=== PATIENT | male | born 1965 | race Two or more races ===

== ENCOUNTER 2017-02-10 10:35 | Emergency (ER) | payer BC ==
[~2017-02-10] VITALS: Ht 177.8 cm; Wt 85.9 kg
[~2017-02-10 10:35] MED LIST: ALEVE220 MG PO; Feosol PO; Folvite PO; MULTIVITAMIN1 EAC2 PO; NOHOMEMEDS; OXYCODONE HCL5 MG PO; Protonix PO; Thiamine,Vitamin B1 PO; [UNRECOGNIZED DRUG - REMARK]
[2017-02-10 11:15] LABS: ADD MIUA? YES; BILIRUBIN NEGATIVE; BLOOD NEGATIVE; COLOR YELLOW ((YELLOW)); GLUCOSE (STRIP) NEGATIVE; KETONES NEGATIVE; LEUKOCYTES NEGATIVE; NITRITE NEGATIVE; PROTEIN (STRIP) 100; SPECIFIC GRAVITY 1.016 (1.000-1.030); UROBILINOGEN 0.2 MG/DL (0.2-1.0)
[2017-02-10 11:15] LABS: HEMATOCRIT 43.9 % (38.0-50.0); MCH 29.7 PG (29.0-34.0); MEAN PLAT.VOLUME 12.1 uM^3 (9.0-12.4); PLATELET COUNT 73 K/uL (156-360); RBC DIS.WIDTH-CV 14.3 % (11.8-14.6); RBC DIS.WIDTH-SD 47.4 % (39-53); RED BLOOD COUNT 4.88 M/uL (4.00-5.50); WHITE BLOOD COUNT 5.2 K/uL (4.1-10.2)
[2017-02-10 11:17] LABS: BACTERIA RARE /HPF; EPITHELIAL CELLS RARE /HPF; MUCUS NONE SEEN /LPF; RED BLOOD CELLS 0-5 /HPF (0-5); WHITE BLOOD CELLS 0-5 /HPF (0-5)
[2017-02-10 11:22] LABS: CHLORIDE 107 mEq/L (99-109); POTASSIUM 4.3 mEq/L (3.7-5.4); SODIUM 139 mEq/L (136-147)
[2017-02-10 11:25] LABS: GLUCOSE 159 mg/dL (70-99)
[2017-02-10 11:26] LABS: ANION GAP 5 MEQ/L (2-14); TOTAL BILIRUBIN 0.5 mg/dL (0.0-1.0)
[2017-02-10 11:28] LABS: ALKALINE PHOSPHATASE 67 IU/L (3-129); GFR ESTIMATE (CALCULATED) > 59 mL/min/
[2017-02-10 11:29] LABS: UREA NITROGEN (BUN) 12 mg/dL (9-23)
[2017-02-10 11:32] LABS: LIPASE 40 U/L (1.0-51.0)
[2017-02-10 12:29] VITALS: BP 139/83
== END 2017-02-10 12:29 | disposition home or self-care (01) ==
LOC: EME 10:35
PROVIDERS: Physician Assistant
DX: E86.0 Dehydration (principal); F17.200 Nicotine dependence, unspecified, uncomplicated
CPT/HCPCS: 74022; 80053; 81003; 83690; 85027; 99281; 99284; J7030

== ENCOUNTER 2018-02-23 19:36 | Inpatient (IN) | payer OTHER ==
[~2018-02-23] VITALS: Ht 177.8 cm; Wt 78.3 kg
[2018-02-23 20:14] LABS: CHLORIDE 101 mEq/L (99-109); POTASSIUM 3.7 mEq/L (3.7-5.4); SODIUM 139 mEq/L (136-147)
[2018-02-23 20:16] LABS: GLUCOSE 131 mg/dL (70-99)
[2018-02-23 20:19] LABS: HEMOGLOBIN 16.2 G/DL (12.5-16.6); MCH 32.5 PG (29.0-34.0); MCHC 35.2 G/DL (30.0-36.0); MCV 92.4 FL (86-99); RBC DIS.WIDTH-CV 13.1 % (11.8-14.6); RBC DIS.WIDTH-SD 44.1 % (39-53); RED BLOOD COUNT 4.98 M/uL (4.00-5.50)
[2018-02-23 20:20] LABS: GFR ESTIMATE (CALCULATED) > 59 mL/min/ (58.99-99999)
[2018-02-23 20:21] LABS: UREA NITROGEN (BUN) 9 mg/dL (9-23)
[2018-02-23 20:28] LABS: TROP-I INTERPRETATION NEGATIVE; TROPONIN-I < 0.01 ng/mL (0.0-0.30)
[2018-02-23 21:19] LABS: IMM.PLATELET FRACTION 22.7 (1-7); PLAT.SUFFICIENCY VERY DECREASED; PLATELET COUNT 45 K/uL (156-360)
[2018-02-23 21:42] LABS: APPEARANCE CLEAR ((CLEAR)); BILIRUBIN NEGATIVE; BLOOD MODERATE; COLOR STRAW ((YELLOW)); GLUCOSE (STRIP) NEGATIVE; KETONES NEGATIVE; LEUKOCYTES NEGATIVE; NITRITE NEGATIVE; PROTEIN (STRIP) 30; SPECIFIC GRAVITY 1.005 (1.000-1.030)
[2018-02-23 21:48] LABS: BACTERIA NONE SEEN /HPF; EPITHELIAL CELLS RARE /HPF; MUCUS NONE SEEN /LPF; RED BLOOD CELLS 20-30 /HPF (0-5); UCUL ADDED? NO; WHITE BLOOD CELLS 0-5 /HPF (0-5)
[2018-02-24 01:47] LABS: ALBUMIN 4.4 g/dL (3.2-4.8)
[2018-02-24 01:50] LABS: TOTAL PROTEIN 8.2 g/dL (6.4-8.3)
[2018-02-24 01:52] LABS: TOTAL BILIRUBIN 3.9 mg/dL (0.0-1.0)
[2018-02-24 01:53] LABS: ALKALINE PHOSPHATASE 89 IU/L (3-129); SERUM ETHYL ALCOHOL < 10 mg/dL
[2018-02-24 01:55] LABS: AST (GOT) 101 IU/L (2-34); DIRECT BILIRUBIN 1.9 mg/dL (0.0-0.3)
[2018-02-24 01:56] LABS: ALT (GPT) 43 IU/L (3-49)
[2018-02-24 01:57] LABS: CHLORIDE 105 mEq/L (99-109); POTASSIUM 3.6 mEq/L (3.7-5.4); SODIUM 136 mEq/L (136-147)
[2018-02-24 01:59] LABS: GLUCOSE 114 mg/dL (70-99)
[2018-02-24 02:02] LABS: CREATININE 0.8 mg/dL (0.6-1.3); GFR ESTIMATE (CALCULATED) > 59 mL/min/ (58.99-99999)
[2018-02-24 02:03] LABS: UREA NITROGEN (BUN) 8 mg/dL (9-23)
[2018-02-24 04:00] VITALS: BP 154/80
[2018-02-24 06:41] LABS: LIPASE 37 U/L (1.0-51.0)
[2018-02-24 07:54] VITALS: BP 128/69
[2018-02-24 11:14] VITALS: BP 135/80
[2018-02-24 16:34] VITALS: BP 132/76
[2018-02-24 19:59] VITALS: BP 137/77
[2018-02-24 23:49] VITALS: BP 158/80
[2018-02-25 03:47] VITALS: BP 137/76
[2018-02-25 07:27] VITALS: BP 138/81
[2018-02-25 12:04] VITALS: BP 151/81
[2018-02-25] MEDS ORDERED: PANTOPRAZOLE SO40 MG PO (12:21)
[2018-02-25] MEDS ORDERED: FOLIC ACID1 MG PO (12:21)
[2018-02-25] MEDS ORDERED: Thiamine,Vitamin B1 PO (12:21)
[2018-02-25] MEDS ORDERED: LIBRIUM5 MG PO (12:21)
== END 2018-02-25 14:03 | disposition home or self-care (01) | DRG 897 ==
LOC: EME → EDBD 19:36 → 3EAST 02-24 02:51 → EDOF 02-24 02:51 → 3EAST 02-24 03:39
PROVIDERS: Emergency Medicine
DX: F10.230 Alcohol dependence with withdrawal, uncomplicated (principal); G40.409 Other generalized epilepsy and epileptic syndromes, not intractable, without status epilepticus; I10 Essential (primary) hypertension; K74.60 Unspecified cirrhosis of liver; K76.0 Fatty (change of) liver, not elsewhere classified; D69.6 Thrombocytopenia, unspecified; E87.2 Acidosis; R31.9 Hematuria, unspecified; I48.92 Unspecified atrial flutter; F17.200 Nicotine dependence, unspecified, uncomplicated; K82.8 Other specified diseases of gallbladder; R18.8 Other ascites
CPT/HCPCS: 70450; 74177; 80048; 80076; 81003; 83690; 84484; 85027; 93005; 99281; 99285; G0480; J2765; J3230; J7030; J7042; J7050